=== PATIENT | female | born 2000 | race Caucasian/White ===

== ENCOUNTER 2021-04-19 16:24 | Emergency (ER) | payer OTHER ==
[~2021-04-19] VITALS: Ht 167.6 cm; Wt 71.7 kg
[2021-04-19] MEDS ORDERED: KETOROLAC TROMETHAMINE INJ 60 MG/2 ML VIAL IM ONE ×2 (17:00→18:11)
[2021-04-19] MEDS ORDERED: CYCLOBENZAPRINE 10 MG TABLET PO ONE (17:00)
[2021-04-19] MEDS ORDERED: DEXAMETHASONE SOD PHOSPHATE 4 MG/ML VIAL IM ONE (17:00)
--- NOTE | 2021-04-19 17:00 | NUR ---
PT C/O LOWER BACK PAIN DUE TO WORKING. PAIN IS RATED 7/10. A&O X4. AMBULATORY. BREATHING IS EVEN AND UNLABORED. PULSES 2+ BILATERALY. URINE SAMPLE OBTAINED.
[2021-04-19] MEDS ORDERED: DEXAMETHASONE SOD PHOSPHATE 10 MG/ML VIAL ONE (17:51)
[2021-04-19] MEDS ORDERED: CYCLOBENZAPRINE 10 MG TABLET ONE (17:51)
[2021-04-19 18:05] LABS: BILIRUBIN,URINE NEGATIVE (NEGATIVE); COLOR,URINE YELLOW (YELLOW); LEUKOCYTE ESTERASE ,URINE NEGATIVE (NEGATIVE); NITRITE, URINE NEGATIVE (NEGATIVE); PROTEIN,URINE NEGATIVE (NEGATIVE); UGLUCOSE NEGATIVE (NEGATIVE); UROBILINOGEN,URINE 0.2 EU/dL (0.2)
[2021-04-19 18:14] LABS: BACTERIA,URINE None seen /HPF (None Seen); RBC,URINE 21-50 /HPF (0-2); SQUAMOUS EPITHELIAL CELL,UR 0-2 /HPF (None Seen); WBC,URINE 0-2 /HPF (0-3)
[2021-04-19] MEDS ORDERED: CYCL10TA9 PO (19:37)
[2021-04-19] MEDS ORDERED: NAPR500T6 PO (19:37)
--- NOTE | 2021-04-19 20:24 | NUR ---
Patient discharged to home in stable condition. Rx and Written and verbal after care instructions given. Patient verbalizes understanding of instruction.
[2021-04-19 23:09] VITALS: BP 109/66
== END 2021-04-19 20:24 | disposition home or self-care (01) ==
LOC: ER 16:26
DX: S39.012A Strain of muscle, fascia and tendon of lower back, initial encounter (principal); Z79.899 Other long term (current) drug therapy; X50.0XXA Overexertion from strenuous movement or load, initial encounter; Y93.89 Activity, other specified; Y92.89 Other specified places as the place of occurrence of the external cause; Y99.0 Civilian activity done for income or pay
CPT/HCPCS: 72110; 81001; 84703; 96372 ×2; 99284; J1100; J1885